=== PATIENT | male | born 1955 | race Caucasian/White ===

== ENCOUNTER → 2020-03-18 | Outpatient (CLI) | payer OTHER ==
[~2020-03-18] MED LIST: ATOR20TA58 PO; ESCITALOPRAM OX10 MG PO; METO25TA4 PO; TAMS0.4C97 PO
== END ==
LOC: LAB 13:48
PROVIDERS: ATTEND Internal Medicine Cardiovascular Disease
DX: Z01.812 Encounter for preprocedural laboratory examination (principal); R07.9 Chest pain, unspecified; Z20.822 Contact with and (suspected) exposure to COVID-19
CPT/HCPCS: U0003

== ENCOUNTER 2020-03-22 06:55 | Outpatient (CLI) | payer OTHER ==
[2020-03-22] VITALS (19 sets, daily range): BP systolic 91–140; BP diastolic 51–71
[~2020-03-22] VITALS: Ht 177.8 cm; Wt 80.7 kg
[2020-03-22] MEDS ORDERED: IODIXANOL 320 MG/ML 100 ML VIAL. ONE (07:38)
[2020-03-22] MEDS ORDERED: LIDOCAINE 1% PF 2 ML VIAL. ONE (07:38)
[2020-03-22 07:51] LABS: CALCIUM 8.5 mg/dL (8.5-10.1); CREATININE 0.9 mg/dL (0.7-1.3)
[2020-03-22] MEDS ORDERED: TAMS0.4C97 PO (08:04)
[2020-03-22] MEDS ORDERED: ESCITALOPRAM OX10 MG PO (08:05)
[2020-03-22] MEDS ORDERED: METO25TA4 PO (08:05)
[2020-03-22] MEDS ORDERED: ATOR20TA58 PO (08:05)
[2020-03-22 08:09] LABS: PROTHROMBIN TIME PATIENT 14.4 SEC (11.7-14.0)
[2020-03-22 08:20] LABS: HEMATOCRIT 41.6 % (39.0-53.0); HEMOGLOBIN 14.1 g/dL (13.0-17.5); RED BLOOD COUNT 4.79 x10^6/uL (4.30-5.70); RED CELL DISTRIBUTION WIDTH 12.8 % (11.5-14.5); WHITE BLOOD COUNT 4.7 x10^3/uL (4.0-11.0)
[2020-03-22] MEDS ORDERED: NITROGLYCERIN 200 MCG/2 ML SYRINGE FOR CATH/VASC LAB. ONE ×2 (08:51→09:39)
[2020-03-22] MEDS ORDERED: HEPARIN for IV BOLUS 10,000 UNIT/10 ML VIAL. ONE (08:51)
[2020-03-22] MEDS ORDERED: MIDAZOLAM HCL/PF 2 MG/2 ML VIAL. ONE (08:51)
[2020-03-22] MEDS ORDERED: fentaNYL PF VIAL 100 MCG/2 ML VIAL ONE (08:51)
[2020-03-22] MEDS ORDERED: VERAPAMIL 5 MG/2 ML VIAL. ONE (08:51)
[2020-03-22] MEDS ORDERED: TIROFIBAN 5MG -0.9% NS 0 ML IV ONE (09:18)
[2020-03-22] MEDS ORDERED: ADENOSINE 6 MG/2 ML VIAL. IV ONE ×2 (09:25→09:29)
[2020-03-22] MEDS ORDERED: ADENOSINE 90 MG/30 ML VIAL. IV ONE (09:30)
[2020-03-22] MEDS ORDERED: fentaNYL PF VIAL 100 MCG/2 ML VIAL IV ONE (10:00)
[2020-03-22] MEDS ORDERED: HEPARIN for IV BOLUS 10,000 UNIT/10 ML VIAL. IART ONE (10:00)
[2020-03-22] MEDS ORDERED: MIDAZOLAM HCL/PF 2 MG/2 ML VIAL. IV ONE (10:00)
[2020-03-22] MEDS ORDERED: NITROGLYCERIN 200 MCG/2 ML SYRINGE FOR CATH/VASC LAB. IART ONE (10:00)
[2020-03-22] MEDS ORDERED: VERAPAMIL 5 MG/2 ML VIAL. IART ONE (10:00)
[2020-03-22] MEDS ORDERED: IODIXANOL 320 MG/ML 100 ML VIAL. IART ONE (10:00)
[2020-03-22] MEDS ORDERED: LIDOCAINE 1% PF 2 ML VIAL. INJ ONE (10:00)
[2020-03-22] MEDS ORDERED: ADENOSINE 90 MG in IV NORMAL SALINE 50ML 90 ML IV ONE (10:00)
[2020-03-22] MEDS ORDERED: CONTRAST GIVEN. MC PRN (10:15)
--- NOTE | 2020-03-22 13:02 | NUR ---
Pt is a post heart cath per right wrist. VSS. Pt denies any pain or SOB. Pt has had extended pressure cuff time due to oozing; see post moderate sedation flow sheet. All air removed at 1148 am; bleeding noted upon removal. 1150 4ml of air added. At 12:15pm air removed with no signs of oozing. At 1231, 2ml of air removed; all air out. Pt started to rebleed at 12:44pm; and 6ml of air placed. Will start removing air at 1:10, 2ml at a time. Will continue to monitor pt. See flowsheet.
--- NOTE | 2020-03-22 14:00 | NUR ---
Orders given from Masood to place 10cc in TR band and hold there for 20-30min, then remove all air. At 13:15 10cc air placed. 10cc held for 25min; and then all air removed. TR band in place for 10min; then removed. TR band removed with no oozing or complications. Dressing placed; site without bruising or swelling. Arm board replaced after TR band removed and dressing placed. Discharge instructions given. VSS. Pt denies any pain, discomfort, or SOB. Left hand IV site removed, tip intact.
--- NOTE | 2020-03-22 14:35 | NUR ---
Discharge Note: BRYON JOHNSTON Discharge instructions and discharge home medications reviewed with Patient and spouse and a copy given. All questions have been answered and understanding verbalized. The following instructions and handouts were given: Radial site care and Moderate sedation Discontinued lines and drains: Left hand IV dc'd and tip intact. Patient discharged to home with via personal vehicle.
--- NOTE | 2020-03-24 14:20 | CARD ---
MR#: [id number] Date of Study: 03/22/2020 Ordering Physician: COLBY TEIXEIRA, Referring Physician: COLBY TEIXEIRA, Tech: SABAS RIDER RTR APPROVED REPORT Technologist: SABAS RIDER RTR Nurse: SARA RODRIGUEZ RN Procedure(s) performed: MODERATE SEDATION TIME: 64 MINUTES FLUORO TIME: 6.9 MIN DOSE: 87.2 GYCM2 CONTRAST: 118CC VISI LHC, Coronary angiography, Left ventriculogram FFR of the RCA and LAD HISTORY The patient is a 64 year-old male with a history of : tobacco history() , hypertension, dyslipidemia. INDICATION The indication(s) include : unstable angina , dyspnea. CSHA Clinical Frailty Scale CS Clinical Frailty Scale: Managing Well Heart Failure Heart Failure: No PROCEDURE NARRATIVE Clinical information: 64 y.o male presenting with unstable angina on metoprolol and statin therapy. Informed consent: Written informed consent was obtained from the patient after adequate discussion of the risks and beth efits of the procedure. Procedure details: ACCESS: The right wrist was prepped and draped in usual sterile fashion. Under 1% lidocaine local anesthesia a 6 [place]an Terumo sheath was placed in the right radial artery via the Seldinger technique. DIAGNOSTIC ANGIOGRAPHY: Right and left coronary arteries were engaged with a 6 Tongan TIG catheter. Diagnostic angiography i n multiple views were obtained. Next, a 6 Tongan pigtail catheter was placed in the left ventricle a nd a LVEDP was measured. A pullback was performed after left ventriculography. All catheters were e xchanged over J-tip guidewire. FINDINGS: ======= Aorta: 110/80 LVEDP: 15 mmHg Left ventriculogram: Ejection fraction 55% Normal wall motion without any evidence of aortic or mitral insufficiency. Coronary angiography: LM: Large caliber short vessel with normal angiographic appearance LAD: Large caliber vessel with a proximal 50-60% stenosis. D1: Moderate caliber vessel with mild luminal irregularities. LCX: Moderate caliber non-dominant vessel with a proximal 20% stenosis. OM1: Moderate caliber vessel with normal angiographic appearance RCA: Large caliber dominant vessel with a mid to distal 70% stenosis. RPDA: Moderate caliber vessel with mild luminal irregularities. INTERVENTIONAL TECHNIQUE: FFR OF THE LAD AND RCA Given moderate LAD and RCA stenoses and FFR study was performed. Heparin was used for anticoagulatio n. Through a 6 Tongan JR4 guide catheter a IFR wire was appropriately normalized and placed in the d istal RCA after nitroglycerin administration. And IFR value was measured at 0.98. FFR was then perf ormed with adenosine administration at 140 mcg/kg/min and an FFR value was noted at 0.93. Pullback a cross the lesion did not reveal any drift. Attention was then turned to the LAD. Through a 6 Tongan EBU 3.5 guide catheter the FFR wire was then placed in the distal LAD. Adenosine was then readminis tered and a FFR value of 0.83 was noted. Again no drift was noted. Final angiography of the RCA and LAD did not reveal any evidence of guide or wire related complications. Given IFR and FFR values ab ove threshold for any stenting further intervention was deferred. CLOSURE: At case completion the right radial sheath was removed and a Terumo radial band was applied with 11 m L of air. Hemostasis was achieved. COMPLICATIONS: No acute complications noted Conclusion 1. Normal left-sided filling pressures 2. Normal LV systolic function, EF 55% 3. Two-vessel coronary artery disease involving the RCA and LAD 4. Negative IFR/FFR of the RCA and LAD Recommendations Aggressive Medical Therapy Signed by : Colby Teixeira, Electronically Approved : 03/22/2020 11:04:41
== END 2020-03-22 14:35 | disposition home or self-care (01) ==
LOC: CCL 06:55 → EDBD 08:30 → EDUNIT# 08:30 → CCL 14:35
PROVIDERS: ATTEND Internal Medicine Cardiovascular Disease
DX: I25.110 Atherosclerotic heart disease of native coronary artery with unstable angina pectoris (principal); R06.00 Dyspnea, unspecified; I10 Essential (primary) hypertension; E78.5 Hyperlipidemia, unspecified; N40.0 Benign prostatic hyperplasia without lower urinary tract symptoms; F41.9 Anxiety disorder, unspecified; Z79.899 Other long term (current) drug therapy; Z98.890 Other specified postprocedural states
CPT/HCPCS: 36415; 80048; 85027; 85610; 93458; 93571; 93572; 99152; 99153; C1769; C1887; C1892; J0153; J1644; J2250; J3010; J3490; Q9967

== ENCOUNTER → 2021-03-22 | Outpatient (CLI) | payer MEDICARE ==
[2020-03-22 14:17] VITALS: BP 118/61
[2021-03-22 07:57] LABS: BASO % 1 % (0-3); EOS # 0.2 x10^3/uL (0.0-0.7); EOS % 4 % (0-3); HEMATOCRIT 44.8 % (39.0-53.0); HEMOGLOBIN 15.1 g/dL (13.0-17.5); LYMPH # 1.2 x10^3/uL (1.0-4.8); LYMPH % 25 % (24-48); MEAN CORPUSCULAR HEMOGLOBIN 30 pg (25-35); MEAN CORPUSCULAR HGB CONC 34 g/dL (31-37); MEAN CORPUSCULAR VOLUME 88 fL (79-100); MONO # 0.5 x10^3/uL (0.0-1.1); MONO % 10 % (0-9); NEUT # 2.7 x10^3/uL (1.8-7.7); NEUT % 60 % (31-73); PLATELET COUNT 153 x10^3/uL (140-400); RED BLOOD COUNT 5.11 x10^6/uL (4.30-5.70); RED CELL DISTRIBUTION WIDTH 13.4 % (11.5-14.5); WHITE BLOOD COUNT 4.5 x10^3/uL (4.0-11.0)
[2021-03-22 08:48] LABS: ALBUMIN 3.9 g/dL (3.4-5.0); CALCIUM 8.4 mg/dL (8.5-10.1); CHOLESTEROL/HDL RATIO 3.8; POTASSIUM 4.2 mmol/L (3.5-5.1); TOTAL BILIRUBIN 0.9 mg/dL (0.2-1.0); TOTAL PROTEIN 7.7 g/dL (6.4-8.2)
--- NOTE | 2021-03-22 12:24 | RAD ---
MR#: [id number] Date of Study: 03/22/2021 Ordering Physician: COLBY TEIXEIRA, Referring Physician: MARI GUARDADO Tech: HEMA Mendenhall ARRT (R) (N) APPROVED REPORT Test Type: Exercise Stress Nurse/Tech: Jessica Melgar RN Test Indications: CAD Cardiac History: asthma, HTN Medications: See Electronic Medical Record Medical History: See Electronic Medical Record Resting ECG: SR Resting Heart Rate: 57 bpm Resting Blood Pressure: 134/66mmHg Pretest Chest Pain: None Nurse/Tech Notes Lungs CTa, S1S2 Consent: The procedure was explained to the patient in lay terms. Informed consent was witnessed. Naga eout was entered into [facility]. History and Stress Test performed by HEMA Mendenhall, BETTY (R) (N) Stress Symptoms No chest pain or symptoms. POST EXERCISE Reason for Termination: Reached target heart rate Target HR: Yes Exercise duration: 7:45 min:sec, 3 Stage Max Blood Pressure: 154/60mmHg Blood Pressure response to exercise: Normal blood pressure response during stress. Heart Rate response to exercise: normal response Chest Pain: No. Arrhythmia: No. ST Change: No. INTERPRETATION Stress EKG Conclusion: Baseline EKG showed sinus rhythm. No ischemic changes at peak stress. No arr hythmias. Imaging Protocol IMAGE PROTOCOL: Rest Tc-99m/stress Tc-99m 1 day Rest: Stress: Viability: Radiopharm.Tc99m [id number] Sestamibi [id number] 33mCi Img Date 03/22/2021 03/22/2021 Inj-Img [id number]. 60min. Rest Admin Site:IV - Right AntecubitalAdministrator:RT Dorota (R)(N) Stress Admin Site: IV - Right AntecubitalAdministrator: RT Dorota (R)(N) STRESS DATA End Diast. Vol.91.0mlAv. Heart Rate76.0bpm End Syst. Vol.7.0mlCO Index BSA6.4L/min Myocardial Xwro929.0gEject. Uagtwowo57.0% Stress Rates Pk. Fill Rate2.97EDV/secLVtime Pk. Fill 205.12msec Pk. Empty Rate4.43ESV/secLVtime Pk. Pgsuf594.31msec /3 Pk. Fill1.54EDV/sec Stress Scores Regional WT2.00Summed WT3.00 Regional WM0.00Summed WM0.00 Study quality was good. Left Ventricular size was Normal at Rest and Stress. Lung uptake was . Left Ventricular ejection fraction is 87%. The rest and stress images show normal perfusion, normal contraction and thickening. LV Perf. Quant 17 Seg. SSS1.00 17 Seg. SRS1.00 17 Seg. SDS1.00 Stress Defect Extent (% LAD)0.00Rest Defect Extent (% LAD)0.00Rev. Defect Extent (% LAD)0.00 Stress Defect Extent (% LCX) 12.50Rest Defect Extent (% LCX)15.00Rev. Defect Extent (% LCX)0.00 Stress Defect Extent (% RCA)0.00Rest Defect Extent (% RCA)0.00Rev. Defect Extent (% RCA)0.00 Stress Defect Extent (% SHAYY)2.60Rest Defect Extent (% SHAYY)2.60Rev. Defect Extent (% SHAYY)0.40 Conclusion 1. Treadmill exercise cardioisotope stress test did not show any evidence of ischemia or infarct. 2. Normal left ventricular systolic function with ejection fraction calculated at 87%. 3. Low risk for cardiac events. Signed by : Nicho Aldridge, Electronically Approved : 03/22/2021 12:23:40
== END ==
LOC: NM 07:37
PROVIDERS: ATTEND Internal Medicine Cardiovascular Disease
DX: I25.10 Atherosclerotic heart disease of native coronary artery without angina pectoris (principal)
CPT/HCPCS: 36415; 78452; 80053; 80061; 85025; 93017; A9500